=== PATIENT | male | born 1955 | race Caucasian/White ===

== ENCOUNTER 2017-03-11 12:54 | Inpatient (IN) | payer BC ==
[~2017-03-11] VITALS: Ht 185.4 cm; Wt 61.7 kg
[2017-03-11 14:05] VITALS: BP 152/74
[2017-03-11] MEDS ORDERED: XANAX0.5 MG GT (14:21)
[2017-03-11] MEDS ORDERED: AMIODARONE HCL200 MG GT (14:22)
[2017-03-11] MEDS ORDERED: LASIX20 MG GT (14:22)
[2017-03-11] MEDS ORDERED: SYNTHROID25 MCG GT (14:23)
[2017-03-11] MEDS ORDERED: LIDODERM 5% P1 PATCH TD (14:24)
[2017-03-11] MEDS ORDERED: LEVAQUIN500 MG GT (14:24)
[2017-03-11] MEDS ORDERED: TRAMADOL HCL50 MG GT (14:26)
[2017-03-11] MEDS ORDERED: CHILDREN'S325 MG/10. GT (14:32)
[2017-03-11] MEDS ORDERED: COREG3.125 M1 GT (14:33)
[2017-03-11] MEDS ORDERED: LIPITOR40 MG GT (14:33)
[2017-03-11] MEDS ORDERED: DUONEB 2.5-0.5 M3 ML AEROSOL (14:34)
[2017-03-11] MEDS ORDERED: ANTI-DIARRH1 MG/5 ML GT (14:35)
[2017-03-11] MEDS ORDERED: COUMADIN5 MG GT (14:36)
[2017-03-11] MEDS ORDERED: FLORASTOR250 MG GT (14:36)
[2017-03-11 16:01] VITALS: BP 114/61
[2017-03-12 00:15] VITALS: BP 112/64
[2017-03-12 05:59] VITALS: BP 102/64
[2017-03-12 06:43] LABS: HEMATOCRIT 46.4 % (38.0-50.0); MCH 32.2 PG (29.0-34.0); MCHC 33.4 G/DL (30.0-36.0); MCV 96.5 FL (86-99); RBC DIS.WIDTH-CV 14.7 % (11.8-14.6); RBC DIS.WIDTH-SD 52.5 % (39-53); RED BLOOD COUNT 4.81 M/uL (4.00-5.50); WHITE BLOOD COUNT 10.2 K/uL (4.1-10.2)
[2017-03-12 06:45] LABS: INTER. NORMALIZED RATIO 2.7; PROTHROMBIN TIME 30.5 SEC (10.2-12.9)
[2017-03-12 07:05] LABS: ALKALINE PHOSPHATASE 96 IU/L (3-129); CHLORIDE 100 MEQ/L (99-109); GFR ESTIMATE (CALCULATED) > 59 mL/min/; GLUCOSE 116 mg/dL (70-99); POTASSIUM 5.1 MEQ/L (3.7-5.4); SAMPLE HEMOLYSIS CHECK 0; SAMPLE ICTERIC CHECK 0; SAMPLE LIPEMIA CHECK 0; SODIUM 136 MEQ/L (136-147); TOTAL BILIRUBIN 0.8 MG/DL (0.0-1.0); UREA NITROGEN (BUN) 24 mg/dL (9-23)
[2017-03-12 07:06] LABS: ANION GAP 6 MEQ/L (2-14)
[2017-03-12 07:38] LABS: PLAT.SUFFICIENCY ADEQUATE; PLATELET CLUMPS PRESENT - PLATELET COUNT APPEARS ADQ.; PLATELET COUNT UNABLE TO REPORT K/uL (156-360)
[2017-03-12 15:05] VITALS: BP 108/55
[2017-03-13 06:10] VITALS: BP 110/55
[2017-03-13 15:46] VITALS: BP 114/64
[2017-03-14 05:06] VITALS: BP 108/59
[2017-03-14 06:21] LABS: INTER. NORMALIZED RATIO 3.7; PROTHROMBIN TIME 42.7 SEC (10.2-12.9)
[2017-03-14 15:47] VITALS: BP 119/68
[2017-03-15 06:34] VITALS: BP 104/61
[2017-03-15 06:42] LABS: INTER. NORMALIZED RATIO 3.7
[2017-03-15 15:39] VITALS: BP 95/51
[2017-03-15 16:33] LABS: HEMATOCRIT 46.8 % (38.0-50.0); MCH 32.1 PG (29.0-34.0); MCHC 33.1 G/DL (30.0-36.0); MCV 96.9 FL (86-99); RBC DIS.WIDTH-CV 14.9 % (11.8-14.6); RBC DIS.WIDTH-SD 53.4 % (39-53); RED BLOOD COUNT 4.83 M/uL (4.00-5.50); WHITE BLOOD COUNT 8.8 K/uL (4.1-10.2)
[2017-03-15 16:59] LABS: ANION GAP 5 MEQ/L (2-14); CHLORIDE 98 MEQ/L (99-109); GFR ESTIMATE (CALCULATED) > 59 mL/min/; GLUCOSE 87 mg/dL (70-99); POTASSIUM 4.5 MEQ/L (3.7-5.4); SAMPLE HEMOLYSIS CHECK 0; SAMPLE ICTERIC CHECK 0; SAMPLE LIPEMIA CHECK 0; SODIUM 134 MEQ/L (136-147); UREA NITROGEN (BUN) 33 mg/dL (9-23)
[2017-03-15 17:00] LABS: PLAT.SUFFICIENCY ADEQUATE; PLATELET CLUMPS PRESENT - PLATELET COUNT APPEARS ADQ.; PLATELET COUNT UNABLE TO REPORT K/uL (156-360)
[2017-03-16 04:42] VITALS: BP 106/55
[2017-03-16 06:47] LABS: INTER. NORMALIZED RATIO 2.9; PROTHROMBIN TIME 32.9 SEC (10.2-12.9)
[2017-03-16 15:54] VITALS: BP 107/51
[2017-03-17 05:19] VITALS: BP 99/57
[2017-03-17 05:22] LABS: INTER. NORMALIZED RATIO 2.5
[2017-03-17 16:15] VITALS: BP 96/58
[2017-03-18 05:38] VITALS: BP 92/52
[2017-03-18 05:50] LABS: INTER. NORMALIZED RATIO 2.8; PROTHROMBIN TIME 31.9 SEC (10.2-12.9)
[2017-03-18 10:00] VITALS: BP 108/56
[2017-03-18 15:34] VITALS: BP 115/69
[2017-03-19 05:05] VITALS: BP 107/55
[2017-03-19 06:23] LABS: INTER. NORMALIZED RATIO 2.7; PROTHROMBIN TIME 30.9 SEC (10.2-12.9)
[2017-03-19 16:01] VITALS: BP 114/60
[2017-03-20 04:31] VITALS: BP 107/56
[2017-03-20 06:43] LABS: INTER. NORMALIZED RATIO 2.5; PROTHROMBIN TIME 28.6 SEC (10.2-12.9)
[2017-03-20 15:40] VITALS: BP 99/52
[2017-03-21 06:08] VITALS: BP 107/55
[2017-03-21 06:38] LABS: INTER. NORMALIZED RATIO 2.4; PROTHROMBIN TIME 27.5 SEC (10.2-12.9)
[2017-03-21 15:32] VITALS: BP 101/56
[2017-03-22 06:47] VITALS: BP 113/55
[2017-03-22 07:04] LABS: INTER. NORMALIZED RATIO 2.6; PROTHROMBIN TIME 29.5 SEC (10.2-12.9)
[2017-03-22 14:45] VITALS: BP 96/53
[2017-03-22 15:55] VITALS: BP 108/58
[2017-03-23 05:17] VITALS: BP 115/58
[2017-03-23 06:10] LABS: INTER. NORMALIZED RATIO 2.6; PROTHROMBIN TIME 29.6 SEC (10.2-12.9)
[2017-03-23 06:12] LABS: ALKALINE PHOSPHATASE 93 IU/L (3-129); ANION GAP 3 MEQ/L (2-14); CHLORIDE 99 MEQ/L (99-109); GFR ESTIMATE (CALCULATED) > 59 mL/min/; GLUCOSE 89 mg/dL (70-99); SAMPLE HEMOLYSIS CHECK 0; SAMPLE ICTERIC CHECK 0; SAMPLE LIPEMIA CHECK 0; SODIUM 139 MEQ/L (136-147); TOTAL BILIRUBIN 0.8 MG/DL (0.0-1.0); UREA NITROGEN (BUN) 30 mg/dL (9-23)
[2017-03-23 07:22] LABS: HEMATOCRIT 40.2 % (38.0-50.0); MCH 32.8 PG (29.0-34.0); MCHC 33.1 G/DL (30.0-36.0); MEAN PLAT.VOLUME 11.5 uM^3 (9.0-12.4); RBC DIS.WIDTH-CV 14.6 % (11.8-14.6); RBC DIS.WIDTH-SD 53.7 % (39-53); RED BLOOD COUNT 4.06 M/uL (4.00-5.50)
[2017-03-23 07:24] LABS: PLATELET COUNT 145 K/uL (156-360)
[2017-03-23 15:34] VITALS: BP 92/51
[2017-03-23 16:10] VITALS: BP 110/58
[2017-03-24 04:51] VITALS: BP 80/49; BP 93/54
[2017-03-24 07:00] LABS: INTER. NORMALIZED RATIO 2.5; PROTHROMBIN TIME 28.5 SEC (10.2-12.9)
[2017-03-24 07:15] VITALS: BP 155/55
[2017-03-24 15:55] VITALS: BP 95/50
[2017-03-25 05:24] VITALS: BP 111/52
[2017-03-25 07:15] VITALS: BP 117/55
[2017-03-25 12:13] LABS: INTER. NORMALIZED RATIO 2.3; PROTHROMBIN TIME 26.4 SEC (10.2-12.9)
[2017-03-25 16:00] VITALS: BP 116/61
[2017-03-26 05:28] VITALS: BP 119/61
[2017-03-26 07:23] LABS: INTER. NORMALIZED RATIO 2.4; PROTHROMBIN TIME 27.3 SEC (10.2-12.9)
[2017-03-26 15:51] VITALS: BP 90/58
[2017-03-27 04:46] VITALS: BP 125/61
[2017-03-27 06:19] LABS: INTER. NORMALIZED RATIO 2.5; PROTHROMBIN TIME 29.2 SEC (10.2-12.9)
[2017-03-27 15:35] VITALS: BP 93/55
[2017-03-28 05:59] VITALS: BP 108/57
[2017-03-28 07:44] LABS: INTER. NORMALIZED RATIO 2.5; PROTHROMBIN TIME 28.7 SEC (10.2-12.9)
[2017-03-28 11:31] LABS: ALKALINE PHOSPHATASE 79 IU/L (3-129); ANION GAP 7 MEQ/L (2-14); CHLORIDE 103 MEQ/L (99-109); GFR ESTIMATE (CALCULATED) > 59 mL/min/; GLUCOSE 86 mg/dL (70-99); POTASSIUM 4.9 MEQ/L (3.7-5.4); SAMPLE HEMOLYSIS CHECK 2; SAMPLE ICTERIC CHECK 0; SAMPLE LIPEMIA CHECK 0; SODIUM 139 MEQ/L (136-147); TOTAL BILIRUBIN 0.9 MG/DL (0.0-1.0); UREA NITROGEN (BUN) 17 mg/dL (9-23)
[2017-03-28 13:49] LABS: HEMATOCRIT 41.2 % (38.0-50.0); MCH 31.5 PG (29.0-34.0); MCV 98.3 FL (86-99); MEAN PLAT.VOLUME 11.3 uM^3 (9.0-12.4); PLATELET COUNT 172 K/uL (156-360); RBC DIS.WIDTH-CV 14.5 % (11.8-14.6); RBC DIS.WIDTH-SD 52.8 % (39-53); RED BLOOD COUNT 4.19 M/uL (4.00-5.50); WHITE BLOOD COUNT 6.6 K/uL (4.1-10.2)
[2017-03-28 16:00] VITALS: BP 105/58
[2017-03-29 06:30] LABS: INTER. NORMALIZED RATIO 2.5; PROTHROMBIN TIME 28.4 SEC (10.2-12.9)
[2017-03-29 06:41] VITALS: BP 117/56
[2017-03-29] MEDS ORDERED: BACLOFEN10 MG GT (12:53)
[2017-03-29] MEDS ORDERED: ESCITALOPRAM OX10 MG GT (12:54)
[2017-03-29] MEDS ORDERED: SENNA8.8 MG/5 M GT (12:55)
[2017-03-29] MEDS ORDERED: DOCU LIQUI50 MG/5 ML GT (12:55)
[2017-03-29] MEDS ORDERED: FAMOTIDINE20 MG GT (12:56)
[2017-03-29] MEDS ORDERED: COUMADIN2.5 MG PO (12:58)
== END 2017-03-29 15:04 | DRG 57 ==
LOC: 3WEST 12:54 → ENPENDDIS 03-30 → EDPENDDISDT 03-30
PROVIDERS: Physical Medicine & Rehabilitation Pain Medicine; Psychiatry & Neurology Neurology
PROC: F07M0ZZ Range of Motion and Joint Mobility Treatment of Musculoskeletal System - Whole Body (ICD-10-PCS; principal; 2017-03-11)
DX: I69.391 Dysphagia following cerebral infarction (principal); R13.19 Other dysphagia; I69.320 Aphasia following cerebral infarction; I69.351 Hemiplegia and hemiparesis following cerebral infarction affecting right dominant side; R26.2 Difficulty in walking, not elsewhere classified; Z93.1 Gastrostomy status; E87.1 Hypo-osmolality and hyponatremia; I47.2 Ventricular tachycardia; I42.0 Dilated cardiomyopathy; D73.5 Infarction of spleen; D68.59 Other primary thrombophilia; I24.0 Acute coronary thrombosis not resulting in myocardial infarction; R45.851 Suicidal ideations; F32.9 Major depressive disorder, single episode, unspecified; I95.9 Hypotension, unspecified; I50.22 Chronic systolic (congestive) heart failure; Z66 Do not resuscitate; R00.1 Bradycardia, unspecified; E03.9 Hypothyroidism, unspecified; I71.4 Abdominal aortic aneurysm, without rupture; I34.0 Nonrheumatic mitral (valve) insufficiency; I65.23 Occlusion and stenosis of bilateral carotid arteries; R06.6 Hiccough; B19.20 Unspecified viral hepatitis C without hepatic coma; R19.7 Diarrhea, unspecified; R11.10 Vomiting, unspecified; R33.9 Retention of urine, unspecified; R63.0 Anorexia; Z68.1 Body mass index [BMI] 19.9 or less, adult; K59.00 Constipation, unspecified; F17.210 Nicotine dependence, cigarettes, uncomplicated; Z86.718 Personal history of other venous thrombosis and embolism; Z87.442 Personal history of urinary calculi; Z95.810 Presence of automatic (implantable) cardiac defibrillator; Z91.81 History of falling; Z80.1 Family history of malignant neoplasm of trachea, bronchus and lung
CPT/HCPCS: 70450; 71010; 74230; 80048; 80053; 85027; 85610; 87493; 92507 GN; 92523 GN; 92526 GN; 92610 GN; 92611 GN; 93005; 97110 GO; 97530 GP; 97532 GN; 99202

== ENCOUNTER → 2017-04-11 | Outpatient (CLI) | payer BC ==
[~2017-04-11] MED LIST: AMIODARONE HCL200 MG GT; ANTI-DIARRH1 MG/5 ML GT; BACLOFEN10 MG GT; CHILDREN'S325 MG/10. GT; COREG3.125 M1 GT; COUMADIN2.5 MG PO; COUMADIN5 MG GT; DOCU LIQUI50 MG/5 ML GT; DUONEB 2.5-0.5 M3 ML AEROSOL; ESCITALOPRAM OX10 MG GT; FAMOTIDINE20 MG GT; FLORASTOR250 MG GT; LASIX20 MG GT; LEVAQUIN500 MG GT; LIDODERM 5% P1 PATCH TD; LIPITOR40 MG GT; SENNA8.8 MG/5 M GT; SYNTHROID25 MCG GT; TRAMADOL HCL50 MG GT; XANAX0.5 MG GT
== END ==
LOC: RAD 08:43
DX: R13.12 Dysphagia, oropharyngeal phase (principal); Z87.01 Personal history of pneumonia (recurrent)
CPT/HCPCS: 74230; 92611 GN; G8996 GN CI; G8997 GN CI; G8998 GN CI